=== PATIENT | male | born 1975 | race American Indian/Alaskan Native ===

== ENCOUNTER 2017-10-05 08:30 | Outpatient (CLI) | payer MEDICAID ==
--- NOTE | 2017-10-05 10:29 | Ultrasound Report ---
BILATERAL DIGITAL DIAGNOSTIC MAMMOGRAM with CAD and LEFT BREAST ULTRASOUND: 10/05/17 08:40:00 CLINICAL: 42-year-old male with a left breast lump. COMPARISON:None. FINDINGS: The breasts are fatty with minimal subareolar fibroglandular densities. No mass, architectural distortion or suspicious calcifications. Fat underlies a left upper outer palpable marker. Ultrasound of the left breast where he feels a lump (at 2 o'clock 5 cm from the nipple) demonstrates a fatty mass measuring 2.6 x 0.9 x 2.4 cm. It has a smooth thin wall and is slightly more echogenic than adjacent fat. IMPRESSION: A fatty mass of the left breast at 2 o'clock 5 cm from the nipple which is probably a benign lipoma. BI-RADS CATEGORY: 2 -- Benign RECOMMENDATION: Clinical follow-up.
== END 2017-10-05 08:31 | disposition home or self-care (01) ==
LOC: US 08:30
PROVIDERS: ATTEND Internal Medicine
DX: N63.20 Unspecified lump in the left breast, unspecified quadrant (principal); R92.8 Other abnormal and inconclusive findings on diagnostic imaging of breast
CPT/HCPCS: 77066

== ENCOUNTER 2019-02-06 08:32 | Emergency (ER) | payer MEDICAID ==
[2019-02-06] MEDS ORDERED: ASPIRIN PO ONE (08:59)
--- NOTE | 2019-02-06 09:38 | XRay Report ---
CHEST 2 VIEWS 0924 INDICATION / CLINICAL INFORMATION: Chest Pain. COMPARISON: None available. FINDINGS: SUPPORT DEVICES: None. HEART / MEDIASTINUM: No significant abnormality. LUNGS / PLEURA: No significant pulmonary or pleural abnormality. No pneumothorax. ADDITIONAL FINDINGS: No significant additional findings. IMPRESSION: No significant acute abnormality Signer Name: Joon Darby MD Signed: 02/06/2019 9:34 AM Workstation Name: [id number]
[2019-02-06 10:02] LABS: Basophils # (Auto) 0.1 K/mm3 (0.0-0.1); Eosinophils # (Auto) 0.1 K/mm3 (0.0-0.4); Eosinophils % (Auto) 1.5 % (0.0-4.3); Hematocrit 41.6 % (35.5-45.6); Lymphocytes # (Auto) 1.7 K/mm3 (1.2-5.4); Mean Corpuscular HGB Conc 34 % (32-34); Mean Corpuscular Volume 84 fl (84-94); Monocytes # (Auto) 0.7 K/mm3 (0.0-0.8); Monocytes % (Auto) 12.3 % (0.0-7.3); Platelet Count 256 K/mm3 (140-440); Red Blood Count 4.96 M/mm3 (3.65-5.03); Red Cell Distribution Width 13.9 % (13.2-15.2)
[2019-02-06 10:12] LABS: BUN/Creatinine Ratio 20; Blood Urea Nitrogen 18 mg/dL (9-20); Calcium 9.9 mg/dL (8.4-10.2); Hemolysis Index 15
[2019-02-06] MEDS ORDERED: NACL 0.9% 1000 ML 1,000 ML IV ONE (12:35)
--- NOTE | 2019-02-06 12:36 | Emergency Department Report ---
ED Shortness of Breath HPI - General Chief Complaint: High BP Stated Complaint: BP HIGH Time Seen by Provider: 02/06/19 10:54 Source: patient Mode of arrival: Ambulatory Limitations: No Limitations - History of Present Illness Initial Comments: Palpitations and dyspnea and elevated BP at 0500 approximately this morning. Denies changes in medications, drugs/alcohol. Reports hx of CHF that resolved and last checked by his billing manager and told he has an EF of 65%. MD Complaint: shortness of breath -: Gradual, hour(s) Pain Scale: 0 Consistency: intermittent Improves With: nothing Worsens With: nothing Known History Of: congestive heart failure Associated Symptoms: palpitations Treatments Prior to Arrival: none - Related Data Previous Rx's Medication Instructions Recorded Last Taken Type diazePAM TAB [Valium] 2 mg PO Q8HR PRN #8 tablet 02/06/16 Unknown Rx Allergies Allergy/AdvReac Type Severity Reaction Status Date / Time No Known Allergies Allergy Verified 03/30/18 17:10 ED Review of Systems ROS: Stated complaint: BP HIGH Other details as noted in HPI Other: GENERAL: No weight change, fatigue, weakness, fever, chills, or night sweats SKIN: No changes in skin or hair, no itching, no rashes, no jaundice HEAD: No trauma, headache, or visual changes EYES: No blurriness, tearing, itching, acute visual loss, conjunctival discoloration, or scleral icterus EARS: No hearing loss, tinnitus, vertigo, or earache NOSE: No rhinorrhea, stuffiness, sneezing, itching, or epistaxis MOUTH: No bleeding gums, hoarseness, sore throat, or swelling CARDIAC: Palpitations. No new murmur, chest pain, dyspnea on exertion, orthopnea, PND, or edema RESPIRATORY: Shortness of breath. No wheeze, cough, sputum production, hemoptysis, pneumonia, asthma, bronchitis, or emphysema GI: No change in appetite, nausea, vomiting, dysphagia, change in bowel frequency, diarrhea, constipation, bleeding, hematemesis, melena, hematochezia, or abdominal pain URINARY: No frequency, urgency, polyuria, dysuria, hematuria, or incontinence GENITAL: Male: No penile discharge, testicular pain, testicular masses, or hernia Female: No change in menstrual regularity, no frequency or dysmenorrhea MUSCULOSKELETAL: No muscle weakness, joint stiffness, decrease in range of motio n, redness, swelling NEUROLOGIC: No loss of sensation, numbness, tingling, tremors, weakness, paraly sis, seizures HEMATOLOGIC: No anemia, easy bruising, bleeding, petechiae, or purpura ENDOCRINE: No hot or cold intolerance, sweating, polyuria, polydipsia or, polyphagia no thyroid problems PSYCHIATRIC: No change in mood, no anxiety, no depression ED Past Medical Hx - Past Medical History Previous Medical History?: Yes Hx Hypertension: Yes (Last 12 years) Hx Congestive Heart Failure: No Hx Diabetes: Yes Hx Asthma: No Hx COPD: No - Surgical History Past Surgical History?: Yes Additional Surgical History: Cystoscopy - Social History Smoking Status: Never Smoker Substance Use Type: Prescribed - Medications Home Medications: Home Medications Medication Instructions Recorded Confirmed Last Taken Type diazePAM TAB [Valium] 2 mg PO Q8HR PRN #8 tablet 02/06/16 Unknown Rx ED Physical Exam - General Limitations: No Limitations - Other Other exam information: GENERAL: Patient in no acute distress HEAD: Normocephalic, atraumatic EYES: PERRLA, EOM intact, no scleral icterus, no papilledema, no conjunctival hemorrhage, visual escalante and acuity wnl, EARS: No tenderness, discharge, tympanic membrane wnl NOSE: No tenderness, discharge, sinus tenderness MOUTH: No erythema, bleeding, exudate HEART: Regular rate and rhythm, no murmur, S1-S2 are auscultated, pulses are symmetric LUNGS: No wheezing, rales, rhonchi, bilateral breath sounds ABDOMEN: Normal bowel sounds, no tenderness, no rebound, no guarding, no masses, no CVA tenderness MUSCULOSKELETAL: Normal joint range of motion, no redness, no swelling, no tenderness NEUROLOGIC: GCS 15, Alert and Oriented x3, Cranial nerves intact, normal sensation, normal strength, normal gait, no cerebellar deficit PSYCHIATRIC: No homicidal or suicidal ideation, no anxiety, no depression, no hallucinations SKIN: Skin is warm and dry, no wounds, no rashes ED Course Vital Signs 02/06/19 02/06/19 02/06/19 08:51 10:55 15:34 Temperature 98.3 F Pulse Rate 80 63 84 Respiratory 18 16 16 Rate Blood Pressure 165/117 Blood Pressure 152/95 142/84 [Left] O2 Sat by Pulse 98 97 96 Oximetry ED Medical Decision Making - Lab Data Result diagrams: 02/06/19 09:44 02/06/19 09:44 Laboratory Results - last 24 hr 02/06/19 02/06/19 02/06/19 09:04 09:44 09:44 WBC 5.8 RBC 4.96 Hgb 14.0 Hct 41.6 MCV 84 MCH 28 MCHC 34 RDW 13.9 Plt Count 256 Lymph % (Auto) 29.0 [place] % (Auto) 12.3 H Eos % (Auto) 1.5 Baso % (Auto) 1.0 Lymph # 1.7 [place] # 0.7 Eos # 0.1 Baso # 0.1 Seg Neutrophils % 56.2 Seg Neutrophils # 3.2 D-Dimer Sodium 139 Potassium 4.9 Chloride 101.3 Carbon Dioxide 27 Anion Gap 16 BUN 18 Creatinine 0.9 Estimated GFR > 60 BUN/Creatinine Ratio 20 Glucose 140 H POC Glucose 119 H Calcium 9.9 Troponin T < 0.010 02/06/19 02/06/19 02/06/19 11:13 14:36 Unknown WBC RBC Hgb Hct MCV MCH MCHC RDW Plt Count Lymph % (Auto) [place] % (Auto) Eos % (Auto) Baso % (Auto) Lymph # [place] # Eos # Baso # Seg Neutrophils % Seg Neutrophils # D-Dimer 1166.67 H Sodium Potassium Chloride Carbon Dioxide Anion Gap BUN Creatinine Estimated GFR BUN/Creatinine Ratio Glucose POC Glucose Calcium Troponin T < 0.010 < 0.010 - EKG Data When compared to previous EKG there are: no significant change - Radiology Data Radiology results: report reviewed - Medical Decision Making Patient comfortable. Updated with results. Plan discharge with outpatient follow up. Return if any worsening. Critical care attestation.: If time is entered above; I have spent that time in minutes in the direct care of this critically ill patient, excluding procedure time. ED Disposition Clinical Impression: Palpitations HTN (hypertension) Qualifiers: Hypertension type: unspecified Qualified Code(s): I10 - Essential (primary) hypertension Dyspnea Qualifiers: Dyspnea type: unspecified Qualified Code(s): R06.00 - Dyspnea, unspecified Disposition: DC-01 TO HOME OR SELFCARE Is pt being admited?: No Condition: Stable Instructions: Palpitations (ED), Dyspnea (ED), Hypertension (ED) Referrals: NEWTON TOURE MD [Primary Care Provider] - 2-3 Days JESU SCHULTZ MD [Staff Physician] - 2-3 Days Time of Disposition: 15:30
--- NOTE | 2019-02-06 14:46 | Cat Scan Report ---
CTA CHEST WITH IV CONTRAST INDICATION: Acute onset chest pain with dyspnea. TECHNIQUE: Axial CT images were obtained through the chest after injection of 100 mL IV contrast. 3 plane MIP re constructions were produced. All CT scans at this location are performed using CT dose reduction for ALARA by means of automated exposure control. COMPARISON: None available. FINDINGS: PULMONARY ARTERIES: No pulmonary emboli. AORTA AND ARTERIES: No acute abnormality. MEDIASTINUM: No mass, lymphadenopathy or other significant abnormality. The heart is normal in size w ithout a pericardial effusion. The trachea and main bronchi are patent and normal in caliber. LUNGS: No suspicious consolidation, nodule or mass. No pneumothorax or pleural effusion. ADDITIONAL FINDINGS: None. UPPER ABDOMEN: No acute findings. BONES: No significant osseous abnormality. IMPRESSION: 1. No CT evidence for pulmonary embolism. 2. No acute findings. Signer Name: Art Durham MD Signed: 02/06/2019 2:42 PM Workstation Name: [id number]
[2019-02-06 15:35] VITALS: BP 142/84
== END 2019-02-06 15:42 | disposition home or self-care (01) ==
LOC: ED 08:32
DX: I10 Essential (primary) hypertension (principal); E11.9 Type 2 diabetes mellitus without complications; R00.2 Palpitations
CPT/HCPCS: 36415; 71046; 71275; 80048; 82962; 84484; 85025; 85379; 93005; 93010; 99285; J7030; Q9967

== ENCOUNTER 2021-01-16 21:19 | Emergency (ER) | payer MEDICAID ==
[2021-01-16] MEDS ORDERED: METOPROLOL TARTRATE 5 MG/5 ML INJ IV ONE (21:40)
[2021-01-16] MEDS ORDERED: SODIUM CHLORIDE 0.9% 1000 ML 1,000 ML IV ONE (21:40)
--- NOTE | 2021-01-16 21:42 | Emergency Department Report ---
ED Palpitations HPI - General Chief Complaint: Arrhythmia/Palpitations Stated Complaint: ELEVATED HEART RATE Time Seen by Provider: 01/16/21 21:19 Source: patient Mode of arrival: Ambulatory Limitations: No Limitations - History of Present Illness Initial Comments: Patient is a 45-year-old male who presents emergency room with complaints of racing heart rate and fast heart rate. Patient states that he has been trying to get into shape and took some preworkout supplements. Patient states the preworkout supplements has 1200 mg of caffeine and it is making his heart rate go up. Patient states that he has a history of heart failure and is currently taking carvedilol and losartan. Patient states he took an extra dose of his carvedilol in order to try to bring his heart rate down. Patient states he is taking Metformin for his type 2 diabetes. Patient states he eats been taking some iron supplements as well as a multivitamin and a B complex. Patient complains of feeling dehydrated. Patient states he has a dry mouth. Patient brought in by EMS. Report received from EMS. EMS states the patient heart rate was 155 and that his blood pressure was elevated as well. Patient denies recent travel. Patient denies recent international travel. Patient denies exposure to the novel coronavirus. Patient denies sick contacts. Patient denies fever and chills. Patient denies cough. Patient denies diarrhea. Patient denies coming in contact with anybody with symptoms of the novel coronavirus. Complaint: rapid heart beat, "heart racing" -: Sudden Context: occured during rest, occured during exertion Associated Symptoms: anxiety. denies: chest pain, shortness of breath, syncope, near-syncope, nausea/vomiting, diaphoresis, cough, parasthesias, feeling of impending doom, muscle cramps Treatments Prior to Arrival: vagal maneuvers, beta-tom - Related Data Previous Rx's Medication Instructions Recorded Last Taken Type diazePAM TAB [Valium] 2 mg PO Q8HR PRN #8 tablet 02/06/16 Unknown Rx Allergies Allergy/AdvReac Type Severity Reaction Status Date / Time No Known Allergies Allergy Verified 03/30/18 17:10 ED Review of Systems ROS: Stated complaint: ELEVATED HEART RATE Other details as noted in HPI Constitutional: denies: chills, fever Eyes: denies: eye pain, eye discharge, vision change ENT: denies: ear pain, throat pain Respiratory: denies: cough, shortness of breath, wheezing Cardiovascular: as per HPI. denies: chest pain, palpitations Endocrine: no symptoms reported Gastrointestinal: denies: abdominal pain, nausea, diarrhea Genitourinary: denies: urgency, dysuria Musculoskeletal: denies: back pain, joint swelling, arthralgia Skin: denies: rash, lesions Neurological: denies: headache, weakness, paresthesias Psychiatric: as per HPI, anxiety. denies: depression Hematological/Lymphatic: denies: easy bleeding, easy bruising ED Past Medical Hx - Past Medical History Previous Medical History?: Yes Hx Hypertension: Yes (Last 12 years) Hx Congestive Heart Failure: No Hx Diabetes: Yes Hx Asthma: No Hx COPD: No - Surgical History Past Surgical History?: Yes Additional Surgical History: Cystoscopy - Family History Family history: no significant - Social History Smoking Status: Never Smoker Substance Use Type: None - Medications Home Medications: Home Medications Medication Instructions Recorded Confirmed Last Taken Type diazePAM TAB [Valium] 2 mg PO Q8HR PRN #8 tablet 02/06/16 Unknown Rx ED Physical Exam - General Limitations: No Limitations General appearance: alert, in no apparent distress - Head Head exam: Present: atraumatic, normocephalic - Eye Eye exam: Present: normal appearance - ENT ENT exam: Present: mucous membranes dry - Neck Neck exam: Present: normal inspection - Respiratory Respiratory exam: Present: normal lung sounds bilaterally. Absent: respiratory distress - Cardiovascular Cardiovascular Exam: Present: regular rate, normal rhythm, tachycardia, normal heart sounds. Absent: systolic murmur, diastolic murmur, rubs, gallop - GI/Abdominal GI/Abdominal exam: Present: soft, normal bowel sounds - Rectal Rectal exam: Present: deferred - Extremities Exam Extremities exam: Present: normal inspection - Back Exam Back exam: Present: normal inspection - Neurological Exam Neurological exam: Present: alert, oriented X3 - Psychiatric Psychiatric exam: Present: normal affect, normal mood - Skin Skin exam: Present: warm, dry, intact, normal color. Absent: rash ED Course Vital Signs 01/16/21 01/16/21 01/16/21 18:46 22:00 23:00 Pulse Rate 135 H 124 H Respiratory 24 24 Rate Blood Pressure 181/86 162/100 O2 Sat by Pulse 100 Oximetry 01/16/21 01/17/21 01/17/21 23:29 00:00 00:18 Pulse Rate 113 H Respiratory 18 27 H 18 Rate Blood Pressure 141/92 O2 Sat by Pulse Oximetry - Reevaluation(s) Reevaluation #1: Patient refused metoprolol. Patient states he feels a little bit better. 01/16/21 2305 Reevaluation #2: Patient agreed to have metoprolol. Patient's heart rate immediately after the fall. Patient's blood pressure improved. Patient states she is feeling much better. 01/17/21 00:05 Reevaluation #3: Patient states his anxiety is better. Patient states that his heart rate is better. Patient states he is feeling better. I discussed all results and clinical findings with patient. I discussed plan of care with patient. Patient agrees with plan of care. Patient is stable for discharge. Patient will be discharged home. Patient given discharge instructions. Patient voiced understanding of discharge instructions. 01/17/21 00:39 ED Medical Decision Making - Lab Data Result diagrams: 01/16/21 21:44 01/16/21 21:44 - EKG Data -: EKG Interpreted by Me EKG shows normal: sinus rhythm, axis, intervals, QRS complexes, ST-T waves Rate: tachycardia - Medical Decision Making Patient is a 45-year-old male that presents emergency room with complaints of racing heart rate. Patient denied chest pain. Patient denied palpitation. Patient denies shortness of breath. Patient complained of anxiety. Patient overdosed on preworkout supplements which had a high dose of caffeine. Patient given fluids. Patient brought in by EMS. Patient heart rate in high blood pressure and the patient was given metoprolol and responded well. Patient symptoms dramatically improved. Patient's labs are essentially unremarkable. Patient not require any further emergency medical services or inpatient service s. Patient is stable for discharge. Patient discharged home. Critical care time documented due to the multiple reassessments, prolonged time at the bedside, interpretation of diagnostics and labs. - Differential Diagnosis Caffeine overdose, dehydration, anxiety, tachycardia Critical Care Time: Yes Critical care time in (mins) excluding proc time.: 35 Critical care attestation.: If time is entered above; I have spent that time in minutes in the direct care of this critically ill patient, excluding procedure time. Critical Care Time: 35 minutes ED Disposition Clinical Impression: Tachycardia, Anxiety Caffeine overdose Qualifiers: Encounter type: initial encounter Injury intent: accidental or unintentional Qualified Code(s): T43.611A - Poisoning by caffeine, accidental (unintentional), initial encounter Disposition: TO HOME OR SELFCARE Is pt being admited?: No Does the pt Need Aspirin: No Condition: Stable Instructions: Accidental Drug Poisoning, Adult, Preventing Poisoning, Adult Additional Instructions: Patient to follow-up with primary care in 2 to 3 days. Patient to follow-up with aviation ordnance officer in 2 to 3 days. Patient to rest. Patient to increase water. Patient to avoid strenuous exercise or heavy lifting until cleared by cardiology and primary care. Patient to continue all medications. Patient to monitor blood pressure at home. Patient to keep a blood pressure log. Blood pressure log to follow-up appointments. Patient to eat a low-salt diet. Patient to eat a heart healthy diet to avoid caffeine use. Patient to avoid vitamins and gym supplements until properly advised by aviation ordnance officer and primary care physician patient to return to the ER if condition worsens, changes or new symptoms arise. Referrals: PRIMARY CARE, [Primary Care Provider] - 2-3 Days Time of Disposition: 00:35
[2021-01-16 22:15] LABS: Basophils # (Auto) 0.1 K/mm3 (0.0-0.1); Basophils % (Auto) 0.8 % (0.0-1.8); Eosinophils % (Auto) 0.2 % (0.0-4.3); Hemoglobin 12.9 gm/dl (11.8-15.2); Lymphocytes # (Auto) 1.5 K/mm3 (1.2-5.4); Lymphocytes % (Auto) 19.5 % (13.4-35.0); Monocytes # (Auto) 0.7 K/mm3 (0.0-0.8); Monocytes % (Auto) 9.1 % (0.0-7.3)
[2021-01-16 22:20] LABS: Hematocrit 38.8 % (35.5-45.6); Mean Corpuscular HGB Conc 34 % (32-34); Mean Corpuscular Volume 83 fl (84-94); Platelet Count 292 K/mm3 (140-440); Red Blood Count 4.67 M/mm3 (3.65-5.03)
[2021-01-16 22:25] LABS: INR 1.01 (0.87-1.13)
[2021-01-16 22:26] LABS: Partial Thromboplastin Time 29.8 Sec. (24.2-36.6)
[2021-01-16 22:33] LABS: Alanine Aminotransferase 21 units/L (7-56); Albumin 4.5 g/dL (3.9-5); BUN/Creatinine Ratio 15; Blood Urea Nitrogen 16 mg/dL (9-20); Calcium 9.2 mg/dL (8.4-10.2); Hemolysis Index 7
[2021-01-17 01:27] LABS: Amphetamine Screen,Urine Negative; Benzodiazepines Screen,Urine Negative; Cocaine Screen,Urine Negative; Methadone Screen,Urine Negative; Opiate Screen,Urine Negative
[2021-01-17 01:30] LABS: Color,Urine Yellow (Yellow)
[2021-01-17 01:31] LABS: Ictotest,Urine Negative (Negative); Protein,Urine <15 mg/dL mg/dL (Negative); Urobilinogen,Urine < 2.0 mg/dL (<2.0)
[2021-01-17 01:41] LABS: Cannabinoid Screen,Urine Positive
[2021-01-17 02:05] VITALS: BP 147/87
--- NOTE | 2021-01-17 14:21 | Electrocardiograph Report ---
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
== END 2021-01-17 02:05 | disposition home or self-care (01) ==
LOC: ED 21:19
DX: T43.611A Poisoning by caffeine, accidental (unintentional), initial encounter (principal); R00.0 Tachycardia, unspecified; F41.9 Anxiety disorder, unspecified; I10 Essential (primary) hypertension; E11.9 Type 2 diabetes mellitus without complications; Z98.890 Other specified postprocedural states; Z79.899 Other long term (current) drug therapy; Y92.89 Other specified places as the place of occurrence of the external cause
CPT/HCPCS: 36415; 80053; 80307; 81001; 84484; 85025; 85610; 85730; 93005; 96361; 96374; 99284; J7030